=== PATIENT | female | born 1990 ===

== ENCOUNTER 2019-09-28 06:00 | Day surgery (SDC) | payer OTHER | END 2019-09-28 16:35 | disposition home or self-care (01) | LOC: CIR.AMB 06:00 → ADM 08:45 → CIR.AMB 08:45 | DX: D27.1 Benign neoplasm of left ovary (principal); N73.6 Female pelvic peritoneal adhesions (postinfective) ==

== ENCOUNTER 2021-12-01 09:07 | Outpatient (CLI) | payer OTHER | END 2021-12-01 09:08 | disposition home or self-care (01) | LOC: RX STUDY 09:07 | PROVIDERS: ATTEND Obstetrics & Gynecology | DX: N97.9 Female infertility, unspecified (principal) ==